=== PATIENT | female | born 1955 | race Caucasian/White ===

== ENCOUNTER 2022-10-19 17:36 | Inpatient (IN) | payer MEDICARE, OTHER ==
[~2022-10-19] VITALS: Ht 154.9 cm; Wt 70.6 kg
[2022-10-19 20:39] LABS: Hematocrit 43.8 % (33.0-51.0); Hemoglobin 14.4 g/dL (11.5-16.0); Mean Platelet Volume 10.6 fL (9.1-12.4); Platelet Count 201 K/mm3 (150-400)
[2022-10-19 20:42] LABS: Albumin, Blood 3.7 g/dL (3.4-5.0); Albumin/Globulin Ratio 1.3 (0.8-1.8); Bilirubin, Total 0.3 mg/dL (0.1-1.0); Bun/Creatinine Ratio 20.4 (12.0-20.0); Calcium, Blood 9.3 mg/dL (8.5-10.1); Creatinine, Blood 0.49 mg/dL (0.40-1.00); Globulin, Blood 2.9 g/dL (2.2-4.0); Total Protein, Blood 6.6 g/dL (6.4-8.2)
[2022-10-19] MEDS ORDERED: ALBU90OI INH (21:05)
[2022-10-19] MEDS ORDERED: ATOR40TA PO (21:06)
[2022-10-19] MEDS ORDERED: ASPI81CH PO (21:06)
[2022-10-19] MEDS ORDERED: BUSP10 PO (21:06)
[2022-10-19] MEDS ORDERED: CICLODAN90 GM TOP (21:07)
[2022-10-19 21:08] LABS: Prothrombin Time Results 10.5 Sec (9.7-11.5)
[2022-10-19] MEDS ORDERED: CLOP75 PO (21:08)
[2022-10-19] MEDS ORDERED: TRULICITY3 MG/0.5 M SC (21:10)
[2022-10-19] MEDS ORDERED: ESCI10 PO (21:10)
[2022-10-19] MEDS ORDERED: FAMO20 PO (21:10)
[2022-10-19] MEDS ORDERED: GABA300 PO (21:11)
[2022-10-19] MEDS ORDERED: GLIP5 PO (21:12)
[2022-10-19] MEDS ORDERED: GLIPIZIDE XL10 MG PO (21:12)
[2022-10-19] MEDS ORDERED: Ketoconazole120 ML TOP (21:14)
[2022-10-19] MEDS ORDERED: METR500 PO (21:20)
[2022-10-19] MEDS ORDERED: TOPROL XL25 MG PO (21:20)
[2022-10-19] MEDS ORDERED: ONDA4 PO (21:21)
[2022-10-19] MEDS ORDERED: NITR.4SL SL (21:21)
[2022-10-19] MEDS ORDERED: NICO21TP TOP (21:21)
[2022-10-19] MEDS ORDERED: SITA100T2 PO (21:22)
[2022-10-20 04:31] LABS: BASOPHILS ABSOLUTE AUTO 0.05 K/mm3 (0.00-0.23); BASOPHILS PERCENT AUTO 1 % (0-2); EOSINOPHILS ABSOLUTE AUTO 0.24 K/mm3 (0.00-0.68); EOSINOPHILS PERCENT AUTO 2 % (0-6); Hematocrit 40.8 % (33.0-51.0); Hemoglobin 13.4 g/dL (11.5-16.0); IMMATURE GRAN ABSOLUTE AUTO 0.03 K/mm3 (0.00-0.10); IMMATURE GRAN PERCENT AUTO 0 % (0-1); LYMPHOCYTES ABSOLUTE AUTO 3.79 K/mm3 (0.84-5.20); LYMPHOCYTES PERCENT AUTO 36 % (21-46); MONOCYTES ABSOLUTE AUTO 0.62 K/mm3 (0.16-1.47); MONOCYTES PERCENT AUTO 6 % (4-13); Mean Corpuscular HGB 30.2 pg (26.0-34.0); Mean Corpuscular HGB Conc 32.8 g/dL (31.5-36.5); Mean Corpuscular Volume 92 fL (80-100); Mean Platelet Volume 11.3 fL (9.1-12.4); NEUTROPHILS ABSOLUTE AUTO 5.92 K/mm3 (1.96-9.15); NEUTROPHILS PERCENT AUTO 56 % (41-73); Platelet Count 206 K/mm3 (150-400); RDW Standard Deviation 43.6 fL (35.1-46.3); Red Blood Cell Count 4.44 M/mm3 (3.80-5.20); White Blood Cell Count 10.65 K/mm3 (4.00-11.30)
--- NOTE | 2022-10-20 05:37 | NUR ---
PT DAUGHTER LUISA IS [place]AY[place] IN [place] AT A MOT - . DAUGHTER AND POA HERBERT CHAVEZ WILL BE HERE TODAY 10/20/22 - .
[2022-10-20 05:57] LABS: Albumin, Blood 3.3 g/dL (3.4-5.0); Albumin/Globulin Ratio 1.1 (0.8-1.8); Bilirubin, Total 0.2 mg/dL (0.1-1.0); Bun/Creatinine Ratio 25.5 (12.0-20.0); Calcium, Blood 8.7 mg/dL (8.5-10.1); Creatinine, Blood 0.55 mg/dL (0.40-1.00); Potassium, Blood 4.4 mmol/L (3.5-5.5); Total Protein, Blood 6.3 g/dL (6.4-8.2)
--- NOTE | 2022-10-20 06:06 | NUR ---
ORDNANCE ENGINEERING TECHNICIAN SUMMARY ASSUMED CARE OF PT AT 1900. SHE WAS A DIRECT ADMIT FROM [place] FOR NSTEMI. PT IS ALERT AND ORIENTED X4, COOPERATIVE. PT HAS BEEN SINUS KARLENE ON TELE, SOMETIMES DROPPING INTO THE 40S BUT NOT SUSTAINING. PT IS ABLE TO MOVE AROUND ON HER OWN AND REPOSITIONS WITHOUT DIFFICULTY. SHE HAS NOT BEEN UP TO THE BATHROOM THIS SHIFT. HEPARIN DRIP RUNNING PER PHARMACY MANAGEMENT. CONSULT WAS CALLED IN TO CARDIOLOGY THIS MORNING. SHE DENIES ANY CHEST PAIN THIS SHIFT.
--- NOTE | 2022-10-20 08:13 | NUR ---
Alert, oriented and pleasantly conversant. Lying flat in bed, denies any pain, pressure or discomfort in chest. Denies difficulty breathing. STates she has had headache since 3 am, with occasional visual hallucinations, and that her head has also been feeling "foggy" since that time. States that when she sat up for assessment she felt a little bit lightheaded. Her daughter is at the bedside. Pt also report sudden "foot drop" on the right foot which she noted while walking about a week after her coronary stents were placed this past August. AT this time, she has full ROM of all extremities. Reports chronic neuropathy of fingers, toes and feet for which she takes gabapentin. Vital signs are stable, heparin gtt infusing per orders, verified at time of bedside report with KENYETTA De Anda.
--- NOTE | 2022-10-20 09:13 | NUR ---
Heparin gtt turned off at this time, per telephone instructions from Dr. Medel.
--- NOTE | 2022-10-20 11:07 | NUR ---
Pt was taken to medical lab specialist for angiogram.
--- NOTE | 2022-10-20 12:32 | NUR ---
PT returned from the seed analysis laboratory assistant. Awake, states feels a little groggy but she is sitting up, eating lunch. Right wrist radial site visualized; no bleeding, no swelling, no hematoma. Pt denies pain/discomfort. sTates no new numbness/tingling in the arms or hands. SpO2 measured on right hand WNL. Capillary refill less than 3 seconds. White immoblizer board in place to prevent flexion/extension of the wrist. Vital signs are stable.
--- NOTE | 2022-10-20 14:20 | NUR ---
Call to Dr. Adamson to relay message from Dr. Medel that angiogram was done, no PCI and from cardiology standpoint pt can be discharged after the TR band is recovered. 1 CC air removed from the band at this time, and there was no bleeding. Site remains without hematoma, bruising nor swelling. Pt reports a tiny bit of pressure in the wrist area, but no other discomfort.
[2022-10-20] MEDS ORDERED: Isosorbide Mono30 MG PO (15:24)
[2022-10-20] MEDS ORDERED: METO25ER PO (15:24)
--- NOTE | 2022-10-20 15:28 | NUR ---
TOTAL OF 6 CC HAVE BEEN REMOVED FROM THE TR BAND, AND SITE REMAINS UNCHANGED.
--- NOTE | 2022-10-20 16:10 | NUR ---
TR BAND FULLY DEFLATED AT 1545. SITE IS WITHOUT SWELLING, BRUISING, BLEEDING. CAP REFILL IS LESS THAN 3 SECONDS. PT DENIES ANY PAIN/DISCOMFORT.
--- NOTE | 2022-10-20 17:07 | NUR ---
TR BAND WAS REMOVED 1 HOUR AFTER COMPLETING THE DEFLATION. SITE REMAINS BEFORE. COVERED WITH STERILE TEGEDERM DRESSING. TELEMETRY REMOVED, AND IVS WERE DC'D. PT IS GETTING DRESSED, WILL BE TAKEN HOME BY HER DAUGHTER THIS EVENING.
== END 2022-10-20 17:10 | disposition home or self-care (01) | DRG 282 ==
LOC: PCU 17:36
PROVIDERS: Family Medicine; ADMIT Internal Medicine
PROC: 4A023N7 Measurement of Cardiac Sampling and Pressure, Left Heart, Percutaneous Approach (ICD-10-PCS; principal; 2022-10-20)
PROC: B211YZZ Fluoroscopy of Multiple Coronary Arteries using Other Contrast (ICD-10-PCS; 2022-10-20)
PROC: B240ZZ3 Ultrasonography of Single Coronary Artery, Intravascular (ICD-10-PCS; 2022-10-20)
DX: I21.4 Non-ST elevation (NSTEMI) myocardial infarction (principal); E11.9 Type 2 diabetes mellitus without complications; I10 Essential (primary) hypertension; E78.5 Hyperlipidemia, unspecified; I25.10 Atherosclerotic heart disease of native coronary artery without angina pectoris; F17.210 Nicotine dependence, cigarettes, uncomplicated; I44.0 Atrioventricular block, first degree; R00.1 Bradycardia, unspecified; Z95.5 Presence of coronary angioplasty implant and graft; Z98.890 Other specified postprocedural states; Z90.49 Acquired absence of other specified parts of digestive tract; Z98.51 Tubal ligation status; Z88.5 Allergy status to narcotic agent; Z79.51 Long term (current) use of inhaled steroids; Z79.899 Other long term (current) drug therapy; Z79.82 Long term (current) use of aspirin; Z79.02 Long term (current) use of antithrombotics/antiplatelets
CPT/HCPCS: 36415; 76937; 80053; 82947; 84484; 85014; 85018; 85025; 85049; 85610; 85730; 93005; 93010; 93454; 99152; 99153; A9270; C1769; C1887; C1894; C8929; J1644; J2250; J3010; J7030; J7040; Q9957; Q9967